=== PATIENT | female | born 1940 | race Caucasian/White ===

== ENCOUNTER 2017-11-27 17:51 | Emergency (ER) | payer MEDICARE ==
--- NOTE | 2017-11-27 18:59 | ER Document Report ---
ED Medical Screen (RME) - General Chief Complaint: Possible polyp/ problem with BMs Stated Complaint: CONSTIPATION Time Seen by Provider: 11/27/17 18:48 TRAVEL OUTSIDE OF THE [place] IN LAST 30 DAYS: No - HPI Onset: Other - Painful and difficulty with defecation over the last 3 days with hard to small volume stools. She notes that she is never had problems with constipation in the past. She felt behind her self and did feel as if there was a small circular obstruction of some type which she is uncertain. She is never really had hemorrhoids in the past, has never been obstructed in the past. - Related Data Allergies/Adverse Reactions: No Known Allergies Allergy (Unverified 11/27/17 17:58) Physical Exam - Vital signs Vitals: Temp Pulse Resp BP Pulse Ox 97.9 F 80 16 121/67 97 11/27/17 18:07 11/27/17 18:07 11/27/17 18:07 11/27/17 18:07 11/27/17 18:07 Course - Re-evaluation Re-evalutation: 11/27/17 18:57 I have performed a rapid screening exam of this patient, they do not have an obvious immediate life threat however will require further evaluation investigation will defer disposition determination in consultation to next provider. We will obtain 2 view of the abdomen for stool burden and possible obstructive pattern. - Vital Signs Vital signs: Temp Pulse Resp BP Pulse Ox 97.9 F 80 16 121/67 97 11/27/17 18:07 11/27/17 18:07 11/27/17 18:07 11/27/17 18:07 11/27/17 18:07
--- NOTE | 2017-11-27 19:35 | RADIOLOGY REPORT (SQ) ---
EXAM DESCRIPTION: ABDOMEN 2 VIEWS COMPLETED DATE/TIME: 11/27/2017 7:26 pm REASON FOR STUDY: abdominal pain COMPARISON: None. NUMBER OF VIEWS: Two views. TECHNIQUE: Supine and erect/decubitus radiographic images of the abdomen acquired. LIMITATIONS: None. FINDINGS: FREE AIR: None. No abnormal gas collections. LUNG BASES: Clear. BOWEL GAS PATTERN: Nonobstructive pattern. No dilated loops or air fluid levels. CALCIFICATIONS: No suspicious calcifications. SOFT TISSUES: No gross mass or suggestion of organomegaly. HARDWARE: None in the abdomen. BONES: Mild scoliosis. OTHER: No other significant finding. IMPRESSION: NO RADIOGRAPHIC EVIDENCE FOR ACUTE ABDOMINAL DISEASE. TECHNICAL DOCUMENTATION: JOB ID: [id number] [employer]- All Rights Reserved Reading location - IP/workstation name: [email or web address]
--- NOTE | 2017-11-27 20:04 | ER Document Report ---
ED General - General Chief Complaint: Possible polyp/ problem with BMs Stated Complaint: CONSTIPATION Time Seen by Provider: 11/27/17 18:48 TRAVEL OUTSIDE OF THE [place] IN LAST 30 DAYS: No - HPI Notes: Patient is a 77-year-old female that presents to the emergency department for chief complaint of a bump on her rectum and constipation Patient states she has had multiple small hard stools today and has been straining. After the second bowel movement she noticed a "bump" on her bottom. She states it feels like it is on her anus. She denies any pain when she touches it. She denies any bleeding from the area. She denies history of hemorrhoids in the past. She currently states she feels good but is concerned about what that bump may be. Past Medical History: Obsessive-compulsive disorder, anxiety, hyperlipidemia Past Surgical History: Reviewed in chart Social History: No drugs alcohol or tobacco Family History: Reviewed and noncontributory for presenting illness Allergies: Reviewed, see documented allergy list. REVIEW OF SYSTEMS: CONSTITUTIONAL : No fever No chills No diaphoresis No recent illness EENT: No vision changes No congestion No sore throat CARDIOVASCULAR: No chest pain No palpitations RESPIRATORY: No shortness of breath No cough No difficulty breathing GASTROINTESTINAL: Constipation No abdominal pain No nausea No vomiting No diarrhea GENITOURINARY: Bump on rectum No dysuria No hematuria No difficulty urinating MUSCULOSKELETAL: No back pain No leg pain No arm pain SKIN: No rashes No lesions LYMPHATIC: No swollen, enlarged glands. NEUROLOGICAL: No lightheadedness No headache No weakness No paresthesias PSYCHIATRIC: No anxiety No depression PHYSICAL EXAMINATION: Vital signs reviewed, nursing noted reviewed. GENERAL: Well-appearing, well-nourished and in no acute distress. HEAD: Atraumatic, normocephalic. EYES: Eyes appear normal, extraocular movements intact, sclera anicteric, conjunctiva are normal. ENT: nares patent, oropharynx clear without exudates. Moist mucous membranes. NECK: Normal range of motion, supple without lymphadenopathy LUNGS: Breath sounds clear to auscultation bilaterally and equal. No wheezes rales or rhonchi. HEART: Regular rate and rhythm without murmurs ABDOMEN: Soft, nontender, normoactive bowel sounds. No rebound, guarding, or rigidity. No masses appreciated. : Normal rectal exam with no external hemorrhoids or fissures. Complete uterine prolapse with cervix external. Cervix nontender with no excoriations or lesions. EXTREMITIES: Nontender, good range of motion, no pitting or edema. NEUROLOGICAL: No focal neurological deficits. Moves all extremities spontaneously Motor and sensory grossly intact on exam. PSYCH: Normal mood, normal affect. SKIN: Warm, Dry, normal turgor, no rashes or lesions noted on exposed skin - Related Data Allergies/Adverse Reactions: No Known Allergies Allergy (Unverified 11/27/17 17:58) Past Medical History - Social History Smoking Status: Never Smoker Chew tobacco use (# tins/day): No Frequency of alcohol use: None Drug Abuse: None Family History: Reviewed & Not Pertinent Patient has suicidal ideation: No Patient has homicidal ideation: No - Past Medical History Cardiac Medical History: Reports: Hx Hypercholesterolemia Pulmonary Medical History: Reports: Hx Pneumonia Renal/ Medical History: Denies: Hx Peritoneal Dialysis Musculoskeletal Medical History: Reports Hx Arthritis - hands Psychiatric Medical History: Reports: Hx Depression Review of Systems - Review of Systems Notes: Dictated Physical Exam - Vital signs Vitals: Temp Pulse Resp BP Pulse Ox 97.9 F 80 16 121/67 97 11/27/17 18:07 11/27/17 18:07 11/27/17 18:07 11/27/17 18:07 11/27/17 18:07 - Notes Notes: Dictated Course - Re-evaluation Re-evalutation: 11/27/17 20:01 Vitals reviewed. Nursing notes reviewed. X-ray shows no acute constipation. Patient has uterine prolapse which was easily reduced. Her cervix appeared normal. She will be referred to [facility] for follow-up of her uterine prolapse. She is in agreement with this plan and stable at discharge. Abdomen X-Ray 11/27/17 18:58 IMPRESSION: NO RADIOGRAPHIC EVIDENCE FOR ACUTE ABDOMINAL DISEASE. - Vital Signs Vital signs: Temp Pulse Resp BP Pulse Ox 97.9 F 80 16 121/67 97 11/27/17 18:07 11/27/17 18:07 11/27/17 18:07 11/27/17 18:07 11/27/17 18:07 Discharge - Discharge Clinical Impression: Uterine prolapse Condition: Stable Disposition: HOME, SELF-CARE Additional Instructions: Please return to the emergency department if you have any worsening, or concern of your symptoms. Please return to the emergency department if you develop chest pain, difficulty breathing, severe abdominal pain, or ongoing vomiting. Please follow-up with [facility] in 3-5 days for reevaluation If prescribed, take all medications as directed. If you have any questions or concerns do not hesitate to return the emergency department for evaluation. You were seen today for uterine prolapse. If you feel a bulge in your vagina gently press inward to reduce your prolapse. Keep the area clean. If you are unable to improve your symptoms you should be seen by [facility] or in the emergency room again. Referrals: [facility] [Provider Group] - Follow up in 3-5 days
[2017-11-27 20:18] VITALS: BP 132/88
== END 2017-11-27 20:20 | disposition home or self-care (01) ==
LOC: ER 17:51
DX: N81.3 Complete uterovaginal prolapse (principal)
CPT/HCPCS: 74019; 99283